=== PATIENT | male | born 1950 | race Caucasian/White ===

== ENCOUNTER 2024-02-18 08:52 | Day surgery (SDC) | payer MEDICARE, BC ==
[2024-02-18] MEDS ORDERED: fentaNYL 100 MCG/2 ML SDV IV ONE (08:53)
[2024-02-18] MEDS ORDERED: Midazolam 1 MG/ML 2 ML SDV IV ONE (08:53)
[2024-02-18] MEDS ORDERED: Sodium Chloride 0.9% 10 ML Syringe FLUSH PRN (09:00)
[2024-02-18] MEDS: Lactated Ringers 1,000 ML IV PRN (10:15)
[2024-02-18] MEDS: acetaZOLAMIDE 500 MG Cap.ER PO ONE (11:17)
[2024-02-18 13:32] VITALS: BP 136/76; PULSE 62
== END 2024-02-18 11:43 | disposition home or self-care (01) ==
LOC: FB.SDS 08:52
PROVIDERS: ATTEND Ophthalmology
DX: H25.813 Combined forms of age-related cataract, bilateral (principal); H35.3132 Nonexudative age-related macular degeneration, bilateral, intermediate dry stage; H04.211 Epiphora due to excess lacrimation, right lacrimal gland; H04.123 Dry eye syndrome of bilateral lacrimal glands; I10 Essential (primary) hypertension; E78.00 Pure hypercholesterolemia, unspecified; Z79.899 Other long term (current) drug therapy
CPT/HCPCS: 66984; A9270; J2250; J3010; J7120; V2632; 00142; 99100